=== PATIENT | female | born 1965 | race African-American/Black ===

== ENCOUNTER 2017-03-18 09:47 | Emergency (ER) | payer SELFPAY ==
[~2017-03-18] VITALS: Ht 160 cm; Wt 59.0 kg
[2017-03-18] MEDS ORDERED: Acetaminophen 500mg (ES) tab ORAL ONE (10:30)
[2017-03-18] MEDS ORDERED: Ketorolac 60mg Inj IM ONE (10:30)
--- NOTE | 2017-03-18 12:26 | Emergency Room Report ---
History of Present Illness General Chief Complaint: Lower Extremity Injury Source: Patient Present Illness HPI Patient states that yesterday she slammed her right knee and a heavy wooden door. She states she's had swelling and pain ever since. She has a lot of pain with weightbearing. She has no other injuries or complaints. Allergies: Coded Allergies: No Known Allergies (Unverified , 03/18/17) Patient History Past Medical History: none, see triage record Social History: Denies: smoking, alcohol use, drug use Reviewed Nursing Documentation: PMH: Agreed, PSxH: Agreed Nursing Documentation-PMH Past Medical History: No Stated History Review of Systems All Other Systems: negative except mentioned in HPI Physical Exam Vital Signs Date Time Temp Pulse Resp B/P (MAP) Pulse Ox O2 Delivery O2 Flow Rate FiO2 03/18/17 09:55 98.4 94 16 149/93 97 Room Air Sp02 EP Interpretation: reviewed, normal General Appearance: no apparent distress, alert, GCS 15, non-toxic Head: normocephalic, atraumatic Eyes: bilateral eye normal inspection, bilateral eye PERRL ENT: hearing grossly normal, normal pharynx, no angioedema, normal voice Neck: full range of motion, supple/symm/no masses Respiratory: no respiratory distress, no retraction, no accessory muscle use, speaking full sentences Gastrointestinal: normal inspection, non-distended Rectal: deferred Musculoskeletal: back normal, normal range of motion, swelling - Swelling and pain w/ ROM of R. knee Neurologic: alert, oriented x3, responsive, motor strength/tone normal, sensory intact, speech normal Psychiatric: judgement/insight normal, memory normal, mood/affect normal, no suicidal/homicidal ideation Skin: normal color, no rash, warm/dry, well hydrated Medical Decision Making Diagnostic Impression: Primary Impression: Tibial plateau fracture, right ER Course This patient has a nondisplaced tibial plateau fracture. The case was discussed with the on-call orthopedic surgeon Dr. Leos. The patient was placed in a knee immobilizer and given crutches and instructed on nonweightbearing status. The patient was instructed to follow up closely with the DC for orthopedic referral. There is no evidence of compartment syndrome and overall the patient is well appearing. She is given close return precautions and followup instructions. Other X-Ray Diagnostic Results Other X-Ray Diagnostic Results : X-Ray ordered: R. knee # of Views/Limited Vs Complete: Complete Indication: Pain EP Interpretation: Yes Interpretation: other Impression: Other - Tibial plateau fx. See official report. Last Vital Signs Date Time Temp Pulse Resp B/P (MAP) Pulse Ox O2 Delivery O2 Flow Rate FiO2 03/18/17 09:55 98.4 94 16 149/93 97 Room Air Status: improved Disposition: HOME, SELF-CARE Condition: Stable Scripts No Active Prescriptions or Reported Meds Referrals: NOT CHOSEN IPA/MD,REFERRING (PCP) Additional Instructions: [facility]. VIELKA ANSARI D.O. Mar 18, 2017 12:26
[2017-03-18 14:03] VITALS: BP 129/82
[2017-03-18] MEDS ORDERED: NORCO 5-325 TA1 EACH ORAL (14:15)
[2017-03-18] MEDS ORDERED: IBUPROFEN600 MG ORAL (14:15)
[2017-03-18 14:44] VITALS: BP 130/85
--- NOTE | 2017-03-18 15:25 | Diagnostic Imaging Report ---
Indication: Trauma, pain Technique: 3 views of the right knee Comparison: None Findings: There is a comminuted nondisplaced fracture of the proximal tibia. This extends into the articular surface laterally. Only minimal if any joint effusion demonstrated. No other acute fractures. No dislocations. Joint spaces are preserved. Impression: Positive for proximal tibial fracture This agrees with the emergency room physician impression reported in the electronic medical record
== END 2017-03-18 14:46 | disposition home or self-care (01) ==
LOC: EMR 10:25
DX: S82.255A Nondisplaced comminuted fracture of shaft of left tibia, initial encounter for closed fracture (principal); W22.8XXA Striking against or struck by other objects, initial encounter; Y92.9 Unspecified place or not applicable
CPT/HCPCS: 96372; 99284